=== PATIENT | female | born 1975 | race Two or more races ===

== ENCOUNTER 2021-12-26 22:39 | Emergency (ER) | payer OTHER ==
[~2021-12-26] VITALS: Ht 157.5 cm; Wt 108.0 kg
[2021-12-26 22:52] VITALS: BP 166/75
--- NOTE | 2021-12-26 23:27 | NUR ---
PT TAKEN TO BED 8
--- NOTE | 2021-12-27 00:11 | NUR ---
Patient being evaluated by physician at bedside.
[2021-12-27] MEDS ORDERED: HYDROcodone/APAP 5/325 MG 1 TAB TAB PO ONE (00:15)
[2021-12-27] MEDS ORDERED: KETOROLAC 30 MG/ML VIAL IM ONE (00:15)
[2021-12-27] MEDS ORDERED: NAPR-54 PO (00:49)
[2021-12-27] MEDS ORDERED: ACET-8386 PO ×2 (00:49→01:06)
--- NOTE | 2021-12-27 00:58 | NUR ---
PT AMBULATORY TO RR UNASSISTED. STEADY GAIT NOTED.
[2021-12-27 01:12] VITALS: BP 160/60
--- NOTE | 2021-12-27 01:12 | NUR ---
Patient discharged with v/s stable. Written and verbal after care instructions given and explained for Sciatica. Patient alert, oriented and verbalized understanding of instructions. Ambulatory with steady gait. All questions addressed prior to discharge. ID band removed. Patient advised to follow up with PMD. Rx of Naproxen and Hydrocodon-Acetaminophen given. Patient educated on indication of medication including possible reaction and side effects. Opportunity to ask questions provided and answered.
--- NOTE | 2021-12-27 01:22 | NUR ---
The patient's care was reviewed and supervised by Bria Cardona RN.
== END 2021-12-27 01:12 | disposition home or self-care (01) ==
LOC: MED 22:39
DX: M54.31 Sciatica, right side (principal); M25.511 Pain in right shoulder; M79.661 Pain in right lower leg; Z90.49 Acquired absence of other specified parts of digestive tract; Z98.890 Other specified postprocedural states
CPT/HCPCS: 96372; 99283; J1885

== ENCOUNTER 2023-01-30 22:32 | Emergency (ER) | payer OTHER ==
[~2023-01-30] VITALS: Ht 157.5 cm; Wt 105.7 kg
[~2023-01-30 22:32] MED LIST: ACET-8905 PO; NAPR-54 PO
[2023-01-30 22:45] VITALS: BP 90/50; PULSE 93; RESP 17; TEMP 98.5; O2SAT 99
--- NOTE | 2023-01-30 22:50 | NUR ---
TO LOBBY A/W BED AMBULATORY
[2023-01-30 23:11] LABS: APPEARANCE,URINE CLOUDY (CLEAR); BILIRUBIN,URINE 1+ (NEGATIVE); BLOOD, URINE 2+ (NEGATIVE); COLOR,URINE YELLOW (YELLOW); LEUKOCYTE ESTERASE ,URINE 2+ (NEGATIVE); NITRITE, URINE NEGATIVE (NEGATIVE); PH,URINE 5.5 (5.0-9.0); UGLUCOSE TRACE (NEGATIVE)
--- NOTE | 2023-01-30 23:11 | NUR ---
URINE WALKED TO LAB.
--- NOTE | 2023-01-30 23:30 | NUR ---
BIB self c/o painful urination and abdominal pain. per pt, pmhx hypertension and diabetes. denies any allergies.
[2023-01-30] MEDS ORDERED: NACL 0.9% 1,000 ML IV SCH (23:35)
[2023-01-30] MEDS ORDERED: ONDANSETRON 4 MG/2 ML VIAL IVP ONE (23:35)
[2023-01-30] MEDS ORDERED: KETOROLAC 30 MG/ML VIAL IVP ONE (23:35)
--- NOTE | 2023-01-30 23:35 | NUR ---
PT AMBULATED TO ER BED 3
[2023-01-30 23:55] LABS: BASOPHILS % (AUTO) 0.4 % (0.0-2.0); EOSINOPHILS % (AUTO) 0.1 % (0.0-4.0); HEMATOCRIT 40.4 % (36-48); LYMPHOCYTES % (AUTO) 8.9 % (20.5-51.1); MEAN CORPUSCULAR HEMOGLOBIN 32 pg (27-31); MEAN CORPUSCULAR HGB CONC 35 g/dL (33-37); MEAN CORPUSCULAR VOLUME 92.3 fL (80-94); MONOCYTES # (AUTO) 0.9 K/uL (0.8-1.0); MONOCYTES % (AUTO) 8.3 % (1.7-9.3); PLATELET COUNT (AUTO) 284 K/uL (140-450); RED BLOOD CELL COUNT(AUTO) 4.38 MIL/uL (4.20-5.40); RED CELL DISTRIBUTION WIDTH 12.9 % (11.6-13.7)
[2023-01-31] MEDS ORDERED: cefTRIAXone 1,000 MG VIAL ONE (00:02)
[2023-01-31 00:09] LABS: ALBUMIN 3.6 g/dL (3.4-5.0); ANION GAP 15.6 (8-16); CARBON DIOXIDE 25.5 mmol/L (21-32); CREATININE 1.3 mg/dL (0.6-1.3); POTASSIUM 4.1 mmol/L (3.5-5.1); TOTAL BILIRUBIN 1.2 mg/dL (0.0-1.0)
[2023-01-31 00:11] LABS: NEUTROPHILS % (AUTO) 82.3 % (42.2-75.2)
[2023-01-31] MEDS ORDERED: MORPHINE SULFATE 4 MG/ML SYR IVP ONE (01:55)
[2023-01-31] MEDS ORDERED: NACL 0.9% 1,000 ML IV ONE (02:00)
[2023-01-31] MEDS ORDERED: HYDROcodone/APAP 10/325 MG 1 TAB TAB PO ONE (02:00)
--- NOTE | 2023-01-31 03:10 | NUR ---
ERMD at bedside reevaluatng patient at this time.
--- NOTE | 2023-01-31 03:45 | NUR ---
Awake, denies any pain or discomfort, no c/o dizziness.
[2023-01-31] MEDS ORDERED: ONDA-188 SL (04:04)
[2023-01-31] MEDS ORDERED: CEFD300C3 PO (04:04)
[2023-01-31] MEDS ORDERED: HYDR-5191 PO (04:04)
[2023-01-31] MEDS ORDERED: IBUP-2218 PO (04:04)
[2023-01-31 04:11] VITALS: BP 111/80; PULSE 95; RESP 17; TEMP 98.5; O2SAT 95
--- NOTE | 2023-01-31 04:11 | NUR ---
Patient discharged with v/s stable. Written and verbal after care instructions given and explained. New rx Cefdinir, Casco, Ibuprofen, and Zofran. Patient verbalized understanding. Ambulatory with steady gait. Accompanied by . All questions addressed prior to discharge. Advised to follow up with PMD.
== END 2023-01-31 04:11 | disposition home or self-care (01) ==
LOC: MED 22:32
DX: N12 Tubulo-interstitial nephritis, not specified as acute or chronic (principal); R51.9 Headache, unspecified; R42 Dizziness and giddiness; Z79.899 Other long term (current) drug therapy
CPT/HCPCS: 36415; 80053; 81001; 81025; 83605; 85025; 87040; 87086; 96361; 96365; 96375; 99284; J0696; J1885; J2405; J7030

== ENCOUNTER 2023-10-01 14:15 | Emergency (ER) | payer OTHER ==
[~2023-10-01] VITALS: Ht 157.5 cm; Wt 100.7 kg
[~2023-10-01 14:15] MED LIST changes: +CEFD300C3 PO; +HYDR-5191 PO; +IBUP-2218 PO; +ONDA-188 SL
[2023-10-01 14:24] VITALS: BP 113/75; PULSE 100; RESP 18; TEMP 98.7; O2SAT 97
[2023-10-01] MEDS: ONDANSETRON 4 MG ODT PO ONE (15:15)
[2023-10-01 16:15] LABS: BILIRUBIN,URINE 1+ (NEGATIVE); BLOOD, URINE NEGATIVE (NEGATIVE); COLOR,URINE YELLOW (YELLOW); LEUKOCYTE ESTERASE ,URINE NEGATIVE (NEGATIVE); NITRITE, URINE NEGATIVE (NEGATIVE); PROTEIN,URINE 1+ (NEGATIVE); UGLUCOSE NEGATIVE (NEGATIVE)
[2023-10-01 16:17] LABS: APPEARANCE,URINE SLIGHTLY HAZY (CLEAR)
[2023-10-01 16:23] LABS: BACTERIA,URINE 1+ /HPF (None Seen); MUCUS,URINE 1+ /LPF (None Seen); RBC,URINE 0-5 /HPF (0-5); SQUAMOUS EPITHELIAL CELL,UR 0-3 (FEW) /LPF (0-3 (FEW)); WBC,URINE 0 /HPF (0-5)
[2023-10-01 16:24] LABS: ICTOTEST POSITIVE (NEGATIVE)
[2023-10-01 16:24] LABS: BASOPHILS # (AUTO) 0.1 K/uL (0.00-0.22); BASOPHILS % (AUTO) 0.6 % (0.0-2.0); EOSINOPHILS # (AUTO) 0.1 K/uL (0-0.4); EOSINOPHILS % (AUTO) 0.5 % (0.0-4.0); HEMATOCRIT 42.5 % (36-48); HEMOGLOBIN 14.8 g/dL (12.0-16.0); LYMPHOCYTES # (AUTO) 3.3 K/uL (2.5-16.5); MEAN CORPUSCULAR HEMOGLOBIN 32 pg (27-31); MEAN CORPUSCULAR HGB CONC 35 g/dL (33-37); MEAN CORPUSCULAR VOLUME 90.9 fL (80-94); MONOCYTES # (AUTO) 0.7 K/uL (0.8-1.0); MONOCYTES % (AUTO) 5.8 % (1.7-9.3); NEUTROPHILS # (AUTO) 7.3 K/uL (1.8-7.7); NEUTROPHILS % (AUTO) 64.1 % (42.2-75.2); PLATELET COUNT (AUTO) 348 K/uL (140-450); RED BLOOD CELL COUNT(AUTO) 4.67 MIL/uL (4.20-5.40); RED CELL DISTRIBUTION WIDTH 12.7 % (11.6-13.7); WHITE BLOOD COUNT (AUTO) 11.4 K/uL (4.8-10.8)
[2023-10-01] MEDS: METOCLOPRAMIDE 10 MG TAB PO ONE (16:32)
[2023-10-01 16:34] LABS: ANION GAP 13.6 (8-16); CALCIUM 9.1 mg/dL (8.5-10.1); CARBON DIOXIDE 26.6 mmol/L (21-32); CREATININE 0.8 mg/dL (0.6-1.3); POTASSIUM 4.2 mmol/L (3.5-5.1)
[2023-10-01] MEDS: KETOROLAC 60 MG/2 ML VIAL IM ONE (16:34)
[2023-10-01 16:37] LABS: ALBUMIN 4.2 g/dL (3.4-5.0); BILIRUBIN,DIRECT 0.2 mg/dL (0.0-0.3); TOTAL BILIRUBIN 0.8 mg/dL (0.0-1.0); TOTAL PROTEIN, SERUM 7.6 g/dL (6.4-8.2)
[2023-10-01 17:00] VITALS: BP 121/72; PULSE 88; RESP 16; TEMP 98.3; O2SAT 99
== END 2023-10-01 17:00 | disposition home or self-care (01) ==
LOC: MED 14:15
DX: K29.70 Gastritis, unspecified, without bleeding (principal); I10 Essential (primary) hypertension; E11.9 Type 2 diabetes mellitus without complications; Z79.1 Long term (current) use of non-steroidal anti-inflammatories (NSAID); Z79.899 Other long term (current) drug therapy
CPT/HCPCS: 36415; 80048; 80076; 81001; 81025; 83690; 85025; 96372; 99283; J1885; J8597; Q0162